=== PATIENT | male | born 1980 | race African-American/Black ===

== ENCOUNTER 2019-07-15 11:29 | Emergency (ER) | payer SELFPAY ==
[2019-07-15] MEDS ORDERED: HYDROcod/ACETAM 5/325 MG TABLET PO STA (12:21)
--- NOTE | 2019-07-15 12:23 | ED Physician Documentation ---
History of Present Illness - Stated complaint Stated Complaint: BACK PX - Chief complaint Chief Complaint: Ext Problem - History obtained from History obtained from: Patient - History of Present Illness Timing: Other (This is a very pleasant 38-year-old gentleman who has a history of back pain but over the last 4 days has had a new issue. Specifically he has had a slight increase in his back pain but pain in both thighs that feels like he is very sore. Its been specifically worse of the last 2 days and try to friend's muscle relaxer without any relief. He notes no weakness, tongue numbness, tingling, saddle anesthesia or incontinence. He does note bilateral pitting pedal edema which is new. He has been traveling recently, and just got here to work at a local [employer]. His home is in [place].) Review of Systems Constitutional: denies: Fever, Chills Cardiac: denies: Chest pain / pressure, Palpitations Respiratory: denies: Dyspnea, Cough GI: denies: Abdominal Pain, Nausea, Vomiting PD PAST MEDICAL HISTORY - Past Medical History Past Medical History: No - Present Medications Home Medications: Ambulatory Orders Medication Instructions Recorded Confirmed Multivitamin with Iron [One Daily 1 each PO DAILY #90 tablet 07/15/19 with Iron] Thiamine [Vitamin B-1] 100 mg PO DAILY #30 tablet 07/15/19 oxyCODONE [Roxicodone] 5 mg PO Q4-6H PRN #10 tablet 07/15/19 - Allergies Allergies/Adverse Reactions: Allergies Allergy/AdvReac Type Severity Reaction Status Date / Time No Known Drug Allergies Allergy Verified 07/15/19 11:35 - Social History Does the pt smoke?: Yes Smoking Status: Current every day smoker PD ED PE NORMAL - Vitals Vital signs reviewed: Yes - General General: Alert and oriented X 3, No acute distress - Cardiac Cardiac: RRR, No murmur - Respiratory Respiratory: No respiratory distress, Clear bilaterally - Abdomen Abdomen: Non tender - Back Back: No spinal TTP, Other (The patient has equal and normal Achilles and patellar reflexes bilaterally. Normal sensation in all areas of the legs. Patient denies saddle anesthesia. Normal strength in flexion-extension at the ankles, knees, and flexion of the hips.) - Extremities Extremities: Other (He does have 1-2+ pitting pedal edema which is symmetric at the ankles) - Neuro Neuro: Alert and oriented X 3, Normal speech Results - Vitals Vitals: Vital Signs - 24 hr 07/15/19 11:32 Temperature 36.7 C Heart Rate 92 Respiratory 19 Rate Blood Pressure 115/67 O2 Saturation 100 Oxygen O2 Source Room air - Labs Labs: Laboratory Tests 07/15/19 07/15/19 07/15/19 12:35 12:35 12:35 WBC 11.6 H RBC 2.68 L Hgb 9.4 L Hct 27.5 L MCV 102.6 H MCH 35.1 H MCHC 34.2 RDW 17.1 H Plt Count 162 MPV 10.3 Neut # (Auto) Not Reportable Lymph # (Auto) Not Reportable [place] # (Auto) Not Reportable Eos # (Auto) Not Reportable Baso # (Auto) Not Reportable Absolute Nucleated RBC Not Reportable Total Counted 100 Band Neuts % (Manual) 0 Abnorm Lymph % (Manual) 0 Nucleated RBC % Not Reportable Neutrophils # (Manual) 6.3 Lymphocytes # (Manual) 3.8 H Monocytes # (Manual) 0.9 Eosinophils # (Manual) 0.5 Basophils # (Manual) 0.1 Nucleated RBCs 1 Differential Comment MANUAL DIFFERENTIAL WBC Morphology NORMAL APPEARANCE Platelet Estimate NORMAL (130-450,000) Platelet Morphology NORMAL APPEARANCE RBC Morph Micro Appear 2+ ANISOCYTOSIS ESR 30 H Sodium 133 L Potassium 3.0 L Chloride 95 L Carbon Dioxide 25 Anion Gap 13.0 BUN 10 Creatinine 0.8 Estimated GFR (MDRD) 133 Glucose 107 H Calcium 8.3 L Total Bilirubin 1.8 H AST 129 H ALT 46 Alkaline Phosphatase 126 H Total Creatine Kinase 310 H Total Protein 7.0 Albumin 2.8 L Globulin 4.2 Albumin/Globulin Ratio 0.7 L Lipase 51 Ethyl Alcohol 07/15/19 12:35 WBC RBC Hgb Hct MCV MCH MCHC RDW Plt Count MPV Neut # (Auto) Lymph # (Auto) [place] # (Auto) Eos # (Auto) Baso # (Auto) Absolute Nucleated RBC Total Counted Band Neuts % (Manual) Abnorm Lymph % (Manual) Nucleated RBC % Neutrophils # (Manual) Lymphocytes # (Manual) Monocytes # (Manual) Eosinophils # (Manual) Basophils # (Manual) Nucleated RBCs Differential Comment WBC Morphology Platelet Estimate Platelet Morphology RBC Morph Micro Appear ESR Sodium Potassium Chloride Carbon Dioxide Anion Gap BUN Creatinine Estimated GFR (MDRD) Glucose Calcium Total Bilirubin AST ALT Alkaline Phosphatase Total Creatine Kinase Total Protein Albumin Globulin Albumin/Globulin Ratio Lipase Ethyl Alcohol 7.2 - Rads (name of study) BLE DVT sono Radiology: Prelim report reviewed (neg for DVT) PD MEDICAL DECISION MAKING - ED course ED course: 38-year-old gentleman presents with muscular thigh pain bilaterally, could be bilateral sciatica. No clinical evidence of cauda equina. Because of pedal edema labs were done and were notable for macrocytic anemia and a mild hepatitis of unclear chronicity. This was discussed with the patient. He does have a history of binge drinking and when he is not working usually has about 10 drinks per night. 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 Departure - Departure Disposition: 01 Home, Self Care Clinical Impression: Hypokalemia Alcoholic hepatitis Qualifiers: Ascites presence: without ascites Qualified Code(s): K70.10 - Alcoholic hepatitis without ascites Leg pain Qualifiers: Laterality: bilateral Qualified Code(s): M79.604 - Pain in right leg; M79.605 - Pain in left leg Condition: Good Record reviewed to determine appropriate education?: Yes Instructions: Cirrhosis Liver Dc, Diet High Potassium Dc Follow-Up: Tracie Oswald MD [Provider Admit Priv/Credential] - Wilman Escudero MD [Credentialed Staff Provider] - [facility] [Provider Group] [facility] [Provider Group] [facility] [Provider Group] Prescriptions: Multivitamin with Iron [One Daily with Iron] 1 each PO DAILY #90 tablet oxyCODONE [Roxicodone] 5 mg PO Q4-6H PRN #10 tablet PRN Reason: Pain Thiamine [Vitamin B-1] 100 mg PO DAILY #30 tablet Comments: You need to follow-up with a primary care physician as soon as possible. Some names are listed on this form. Return if worse. Do not drink alcohol. Please note for follow-up, your hemoglobin was 9.4, hematocrit 27.5, MCV 102.6, and platelet count was 162. Your sodium and potassium were mildly low and your AST was elevated at 129, bilirubin at 1.8, alkaline phosphatase at 126. This pattern is concerning for AN alcoholic hepatitis with bone marrow suppression.
[2019-07-15 12:51] LABS: BASOPHILS % (AUTO) 0.6 %; EOSINOPHILS % (AUTO) 2.2 %; HGB - HEMOGLOBIN 9.4 g/dL (14.0-18.0); LYMPHOCYTES % (AUTO) 17.7 %; MEAN CORPUSCULAR HEMOGLOBIN 35.1 pg (27.0-31.0); MEAN CORPUSCULAR HGB CONC 34.2 g/dL (32.0-36.0); MEAN CORPUSCULAR VOLUME 102.6 fL (80.0-94.0); MEAN PLATELET VOLUME 10.3 fL (7.4-11.4); MONOCYTES % (AUTO) 13.8 %; NEUTROPHILS % (AUTO) 63.8 %; PLT - PLATELET COUNT 162 10^3/uL (130-450); RED BLOOD COUNT 2.68 10^6/uL (4.70-6.10); RED CELL DISTRIBUTION WIDTH 17.1 % (12.0-15.0); WHITE BLOOD COUNT 11.6 x10^3/uL (4.8-10.8)
[2019-07-15 12:56] LABS: ALBUMIN 2.8 g/dL (3.2-5.5); ALBUMIN/GLOBULIN RATIO 0.7 (1.0-2.2); BILIRUBIN,TOTAL 1.8 mg/dL (0.2-1.0); CALCIUM 8.3 mg/dL (8.5-10.3); CREATININE 0.8 mg/dL (0.6-1.2)
[2019-07-15 12:57] LABS: ABNORMAL LYMPHS % (MANUAL) 0 %; BAND NEUTROPHILS % (MANUAL) 0 %
[2019-07-15 13:27] LABS: BASOPHILS # (MANUAL) 0.1 10^3/uL (0-0.1); BASOPHILS % (MANUAL) 1 %; EOSINOPHILS # (MANUAL) 0.5 10^3/uL (0-0.7); LYMPHOCYTES # (MANUAL) 3.8 10^3/uL (1.5-3.5); LYMPHOCYTES % (MANUAL) 33 %; MONOCYTES # (MANUAL) 0.9 10^3/uL (0.0-1.0)
[2019-07-15 13:29] LABS: PLATELET MORPHOLOGY NORMAL APPEARANCE (NORMAL)
[2019-07-15 13:30] LABS: PLATELET ESTIMATE, MANUAL NORMAL (130-450,000) (NORMAL)
[2019-07-15 13:32] LABS: DIFFERENTIAL COMMENT MANUAL DIFFERENTIAL
[2019-07-15] MEDS ORDERED: THIAMINE 100 MG TABLET PO STA (14:42)
[2019-07-15] MEDS ORDERED: MULTIVITAMIN TABLET PO STA (14:42)
--- NOTE | 2019-07-15 15:01 | Ultrasound Report ---
Reason: leg pain, travelling Procedure Date: 07/15/2019 Accession Number: [id number] / [id number] Procedure: US - Duplex Ext Veins Bilateral CPT Code: FULL RESULT: EXAM: BILATERAL LOWER EXTREMITY VENOUS ULTRASOUND EXAM DATE: 07/15/2019 02:52 PM. CLINICAL HISTORY: Worsening leg pain for 1 week. Recent travel. COMPARISON: None. TECHNIQUE: Real-time sonographic vascular imaging was performed by the fundraising director through the lower extremities utilizing both color-flow and Doppler spectral analysis. Multiple industrial sales representative static images were saved for review. FINDINGS: Right: Common Femoral Vein (CFV): Normal. CFV-GSV Junction: Normal. Profunda Femoral Vein (PFV): Normal. Femoral Vein (FV) Prox: Normal. Femoral Vein (FV) Mid: Normal. Femoral Vein (FV) Dist: Normal. Popliteal Vein: Normal. Posterior Tibial Veins: Normal. Peroneal Veins: Normal. Left: Common Femoral Vein (CFV): Normal. CFV-GSV Junction: Normal. Profunda Femoral Vein (PFV): Normal. Femoral Vein (FV) Prox: Normal. Femoral Vein (FV) Mid: Normal. Femoral Vein (FV) Dist: Normal. Popliteal Vein: Normal. Posterior Tibial Veins: Normal. Peroneal Veins: Normal. Other: None. IMPRESSION: No evidence for deep venous thrombosis bilaterally. [facility]
[2019-07-15] MEDS ORDERED: POTASSIUM CHLORIDE 20 MEQ TABLET PO STA (15:03)
[2019-07-15 15:19] VITALS: BP 130/76
== END 2019-07-15 15:18 | disposition home or self-care (01) ==
LOC: ED 11:29
DX: M79.651 Pain in right thigh (principal); M79.652 Pain in left thigh; M54.9 Dorsalgia, unspecified; R60.0 Localized edema; E87.6 Hypokalemia; K70.10 Alcoholic hepatitis without ascites; D53.9 Nutritional anemia, unspecified; F17.200 Nicotine dependence, unspecified, uncomplicated
CPT/HCPCS: 36415; 80053; 80320; 82550; 83690; 85025; 85651; 93970; 99284; A9270